=== PATIENT | female | born 1975 | race African-American/Black ===

== ENCOUNTER 2016-12-31 22:52 | Emergency (ER) | payer BC ==
--- NOTE | 2016-12-31 23:03 | PHYS DOC ---
Adult General Chief Complaint Chief Complaint: ABDOMINAL PAIN IN HPI HPI Patient is a 41 year old female presenting to the emergency department for evaluation of low midline abdominal pain that has been going on for at least 4- 5 days. She says that she has been seen by [facility] in addition to [facility] and had several hCGs and OB ultrasounds but she does not know the results of any of them. She says that she has been having vaginal spotting. She has had some nausea but no fevers chills vomiting diarrhea constipation dysuria or hematuria. She is in no obvious distress with normal vital signs. with one prior and 2 prior miscarriages. Review of Systems Review of Systems Constitutional: Denies fever or chills [] Respiratory: Denies cough or shortness of breath [] Cardiovascular: No additional information not addressed in HPI [] GI: + abdominal pain, nausea. No vomiting, bloody stools or diarrhea [] : Denies dysuria or hematuria [] Musculoskeletal: + back pain. No joint pain [] Allergies Allergies Allergies Coded Allergies Type Severity Reaction Last Updated Verified No Known Drug Allergies 12/31/16 No Physical Exam Physical Exam Constitutional: Well developed, well nourished, no acute distress, non-toxic appearance. [] Cardiovascular:Heart rate regular rhythm, no murmur [] Lungs & Thorax: Bilateral breath sounds clear to auscultation [] Abdomen: Bowel sounds normal, soft, diffuse lower abdominal tenderness, no rebound or guarding no masses, no pulsatile masses. [] C[employer] exam refused by patient. Skin: Warm, dry, no erythema, no rash. [] Back: No tenderness, no CVA tenderness. [] Extremities: No tenderness, no cyanosis, no clubbing, ROM intact, no edema. [] Neurologic: Alert and oriented X 3, normal motor function, normal sensory function, no focal deficits noted. [] Current Patient Data Vital Signs Vital Signs Date Time Temp Pulse Resp B/P Pulse Ox O2 Delivery O2 Flow Rate FiO2 01/01/17 00:52 82 18 143/71 97 Room Air 12/31/16 23:06 98.6 98.6 Lab Values Laboratory Tests Test 12/31/16 23:25 12/31/16 23:45 Urine Collection Type Unknown Urine Color Yellow Urine Clarity Turbid Urine pH 7.5 Urine Specific [place] 1.020 Urine Protein Negativemg/dL (NEG-TRACE) Urine Glucose (UA) Negativemg/dL (NEG) Urine Ketones (Stick) Negativemg/dL (NEG) Urine Blood Large (NEG) Urine Nitrite Negative (NEG) Urine Bilirubin Negative (NEG) Urine Urobilinogen Dipstick 1.0mg/dL (0.2 mg/dL) Urine Leukocyte Esterase Negative (NEG) Urine RBC Occ/HPF (0-2) Urine WBC 1-4/HPF (0-4) Urine Squamous Epithelial Cells Mod/LPF Urine Amorphous Sediment Present/HPF Urine Bacteria Few/HPF (0-FEW) Urine Mucus Slight/LPF Urine Opiates Screen Neg (NEG) Urine Methadone Screen Neg (NEG) Urine Barbiturates Neg (NEG) Urine Phencyclidine Screen Neg (NEG) Urine Amphetamine/Methamphetamine Neg (NEG) Urine Benzodiazepines Screen Neg (NEG) Urine Cocaine Screen Neg (NEG) Urine Cannabinoids Screen Neg (NEG) Urine Ethyl Alcohol Neg (NEG) White Blood Count 9.3x10^3/uL (4.0-11.0) Red Blood Count 4.11x10^6/uL (3.50-5.40) Hemoglobin 10.4g/dL (12.0-15.5) L Hematocrit 32.6% (36.0-47.0) L Mean Corpuscular Volume 79fL (79-100) Mean Corpuscular Hemoglobin 25pg (25-35) Mean Corpuscular Hemoglobin Concent 32g/dL (31-37) Red Cell Distribution Width 15.8% (11.5-14.5) H Platelet Count 323x10^3/uL (140-400) Neutrophils (%) (Auto) 74% (31-73) H Lymphocytes (%) (Auto) 16% (24-48) L Monocytes (%) (Auto) 10% (0-9) H Eosinophils (%) (Auto) 0% (0-3) Basophils (%) (Auto) 0% (0-3) Neutrophils # (Auto) 6.9x10^3uL (1.8-7.7) Lymphocytes # (Auto) 1.5x10^3/uL (1.0-4.8) Monocytes # (Auto) 0.9x10^3/uL (0.0-1.1) Eosinophils # (Auto) 0.0x10^3/uL (0.0-0.7) Basophils # (Auto) 0.0x10^3/uL (0.0-0.2) Maternal Serum HCG Beta Subunit 433mIU/mL (0-6) H Sodium Level 136mmol/L (136-145) Potassium Level 4.0mmol/L (3.5-5.1) Chloride Level 104mmol/L (98-107) Carbon Dioxide Level 27mmol/L (21-32) Anion Gap 5 (6-14) L Blood Urea Nitrogen 14mg/dL (7-20) Creatinine 0.9mg/dL (0.6-1.0) Estimated GFR (Cockcroft-Gault) 83.9 BUN/Creatinine Ratio 16 (6-20) Glucose Level 117mg/dL (70-99) H Calcium Level 8.9mg/dL (8.5-10.1) Total Bilirubin 0.2mg/dL (0.2-1.0) Aspartate Amino Transferase (AST) 13U/L (15-37) L Alanine Aminotransferase (ALT) 16U/L (14-59) Alkaline Phosphatase 70U/L (46-116) Total Protein 7.4g/dL (6.4-8.2) Albumin 3.5g/dL (3.4-5.0) Albumin/Globulin Ratio 0.9 (1.0-1.7) L Lipase 121U/L (73-393) Ethyl Alcohol Level < 10mg/dL (0-10) Laboratory Tests 12/31/16 23:45 Laboratory Tests 12/31/16 23:45 EKG EKG [] Radiology/Procedures Radiology/Procedures PROCEDURE Ob ultrasound less than 14 weeks and transvaginal OB ultrasound HISTORY Spotting TECHNIQUE Sonographic examination of [place] was performed by transabdominal and endovaginal technique and multiple static images were obtained. FINDINGS Ob ultrasound less than 14 weeks: The uterus measures 11 x 6.7 x 6.2 centimeters. There are multiple fibroids in the uterus. The endometrium is not well seen. The right ovary appears normal with normal blood flow and measures 3.9 x 1.9 by 1.9 centimeters. The left ovary appears normal with normal blood flow measures 2.8 by 4.2 x 2.6 centimeter. Transvaginal OB ultrasound There is mild free fluid. The endometrium measures 10 millimeters in thickness. The gestational sac is not seen. Impression One. Fibroid uterus. 2. No ultrasound evidence of . Findings could represent early less than 4 weeks or could be miscarriage. Recommend correlation with serial quantitative beta HCG. If the continues a short-term wall followup ultrasound should be performed once the patient is 6 weeks in order to document an intrauterine and exclude possible ectopic . Electronically signed by: Preston Lund MD (January 01, 2017 01:15:34) DICTATED and SIGNED BY: PRESTNO LUND III, MD DATE: 01/01/17 0115 Course & Med Decision Making Course & Med Decision Making Patient has symptoms consistent with threatened miscarriage. Without knowing prior results difficult to determine whether she is miscarrying for sure or not. HCG is quite low and patient does not know her last period. Patient's repeat abdominal exam is benign as it is nonfocal and just has diffuse lower abdominal tenderness with no rebound or guarding. Patient with likely miscarriage but needs follow-up in a more appropriate manner rather than following with different emergency departments or clinics. He was told this and she was discharged in stable condition. Patient aware and agreeable with plan for discharge and verbalized understanding of the need for short-term follow-up and strict ER return precautions discussed including worsening pain fevers vomiting or vaginal concerns. Dragon Disclaimer Dragon Disclaimer This electronic medical record was generated, in whole or in part, using a voice recognition dictation system. Departure Departure Impression: Primary Impression: Threatened Disposition: 01 HOME, SELF-CARE Condition: GOOD Referrals: BRYCE ALLEN Jr, MD Patient Instructions: Threatened Miscarriage Scripts Ondansetron (Zofran Odt)4 Mg Tab.rapdis4 Mg PO BID PRN NAUSEA/VOMITING #14 TAB Prov:CARY KEE DO 01/01/17 CARY KEE DO December 31, 2016 23:03
[2016-12-31 23:41] LABS: BILIRUBIN,URINE NEGATIVE (NEG); GLUCOSE,URINE NEGATIVE (NEG); NITRITE,URINE NEGATIVE (NEG); PH,URINE 7.5; PROTEIN,URINE NEGATIVE (NEG-TRACE)
[2016-12-31 23:46] LABS: BACTERIA,URINE FEW /HPF (0-FEW); RBC,URINE OCC /HPF (0-2); SQUAMOUS EPITHELIAL CELL,UR MOD /LPF
[2016-12-31 23:54] LABS: BASO % 0 % (0-3); EOS % 0 % (0-3); HEMATOCRIT 32.6 % (36.0-47.0); HEMOGLOBIN 10.4 g/dL (12.0-15.5); LYMPH # 1.5 x10^3/uL (1.0-4.8); LYMPH % 16 % (24-48); MEAN CORPUSCULAR HEMOGLOBIN 25 pg (25-35); MEAN CORPUSCULAR HGB CONC 32 g/dL (31-37); MEAN CORPUSCULAR VOLUME 79 fL (79-100); MONO % 10 % (0-9); NEUT % 74 % (31-73); PLATELET COUNT 323 x10^3/uL (140-400); RED BLOOD COUNT 4.11 x10^6/uL (3.50-5.40); RED CELL DISTRIBUTION WIDTH 15.8 % (11.5-14.5); WHITE BLOOD COUNT 9.3 x10^3/uL (4.0-11.0)
[2016-12-31 23:58] LABS: BARBITURATES NEG (NEG); BENZODIAZEPINES NEG (NEG); CANNABINOIDS NEG (NEG); COCAINE NEG (NEG); METHADONE NEG (NEG); OPIATES NEG (NEG); PHENCYCLIDINE NEG (NEG)
[2017-01-01 00:15] LABS: CALCIUM 8.9 mg/dL (8.5-10.1); CREATININE 0.9 mg/dL (0.6-1.0); GFR 83.9
[2017-01-01 00:22] LABS: ALBUMIN 3.5 g/dL (3.4-5.0); ALBUMIN/GLOBULIN RATIO 0.9 (1.0-1.7); TOTAL BILIRUBIN 0.2 mg/dL (0.2-1.0); TOTAL PROTEIN 7.4 g/dL (6.4-8.2)
[2017-01-01 00:52] VITALS: BP 143/71
--- NOTE | 2017-01-01 01:17 | RAD ---
PROCEDURE Ob ultrasound less than 14 weeks and transvaginal OB ultrasound HISTORY Spotting TECHNIQUE Sonographic examination of was performed by transabdominal and endovaginal technique and multiple static images were obtained. FINDINGS Ob ultrasound less than 14 weeks: The uterus measures 11 x 6.7 x 6.2 centimeters. There are multiple fibroids in the uterus. The endometrium is not well seen. The right ovary appears normal with normal blood flow and measures 3.9 x 1.9 by 1.9 centimeters. The left ovary appears normal with normal blood flow measures 2.8 by 4.2 x 2.6 centimeter. Transvaginal OB ultrasound There is mild free fluid. The endometrium measures 10 millimeters in thickness. The gestational sac is not seen. Impression One. Fibroid uterus. 2. No ultrasound evidence of . Findings could represent early less than 4 weeks or could be miscarriage. Recommend correlation with serial quantitative beta HCG. If the continues a short-term wall followup ultrasound should be performed once the patient is 6 weeks in order to document an intrauterine and exclude possible ectopic . Electronically signed by: Destin Lund MD (January 01, 2017 01:15:34)
[2017-01-01] MEDS ORDERED: ONDA4TAB10 PO (01:26)
== END 2017-01-01 01:35 | disposition home or self-care (01) ==
LOC: ER 22:52
DX: O20.0 Threatened abortion (principal); Z3A.01 Less than 8 weeks gestation of pregnancy
CPT/HCPCS: 36415; 76801; 76817; 80053; 80305; 80320; 81001; 83690; 84702; 85027; 86850; 86900; 86901; G0480; G0481; 99285-25